=== PATIENT | female | born 1965 | race Asian ===

== ENCOUNTER 2016-12-05 12:59 | Emergency (ER) | payer OTHER ==
[~2016-12-05] VITALS: Ht 162.6 cm; Wt 54.0 kg
[2016-12-05 13:06] VITALS: Ht 162.6 cm; Wt 54.0 kg
[2016-12-05] MEDS ORDERED: LORAZEPAM 1 MG TAB PO ONE (14:30)
--- NOTE | 2016-12-05 15:13 | ERD ---
ER Documentation Chief Complaint Date/Time DATE: 12/05/16 TIME: 15:10 Chief Complaint anxiety since last night, heart racing, lorazepam not working HPI This is a 51-year-old female presents to the ER stating that she started feeling heart palpitations since last night. Patient took lorazepam last night and half a pill this morning however her symptoms continue. Patient states that she feels as if she has chest pressure and pressure in her head. She also admits to numbness and tingling of her hands and feet. Patient denies any recent travel. She denies any leg pain, redness or swelling. Patient denies any shortness of breath. Her chest pressure is nonexertional. Her symptoms have been constant since they started. Patient denies any head trauma. She denies any nausea vomiting or diarrhea. She denies any fevers or chills. Patient does have a past medical history of hyperthyroidism and is currently seeing an automobile painter for a goiter that she has. ROS 12 point review of systems was done, all negative except per HPI. Allergies Allergies: Coded Allergies: No Known Allergy (Unverified , 12/05/16) PMhx/Soc Medical and Surgical Hx: pt denies Surgical Hx Anesthesia Reaction: No Hx Neurological Disorder: No Hx Respiratory Disorders: No Hx Cardiac Disorders: No Hx Psychiatric Problems: Yes Hx Miscellaneous Medical Probl: Yes (HYPERTHYROIDISM, ANXIETY) Hx Alcohol Use: No Hx Substance Use: No Hx Tobacco Use: No Smoking Status: Never smoker Physical Exam Vitals Vital Signs Date Time Temp Pulse Resp B/P Pulse Ox O2 Delivery O2 Flow Rate FiO2 12/05/16 18:06 98.6 85 19 122/67 99 Room Air 12/05/16 13:06 99.3 123 16 114/56 97 Physical Exam GENERAL: The patient is well developed and appropriate for usual state of health , in no apparent distress. HEENT: Atraumatic. Conjunctivae are pink. Pupils equal, round, and reactive to light. Extraocular muscles are grossly intact. Bilateral tympanic membranes are clear with no evidence of erythema, effusion or dulling of the light reflex. The oropharynx is clear with no erythema or exudates. NECK: C-spine is soft and supple. There is no cervical lymphadenopathy. CHEST: Clear to auscultation bilaterally. There are no rales, wheezes or rhonchi. HEART: Regular rate and rhythm. No murmurs, clicks, rubs or gallops. ABDOMEN: Soft, nontender and nondistended. Good bowel sounds. No rebound or guarding. No gross peritonitis. No gross organomegaly or masses. No Bower sign or McBurney point tenderness. No pulsatile masses. BACK: No midline or flank tenderness. EXTREMITIES: Equal pulses bilaterally. There is no peripheral clubbing, cyanosis or edema. No focal swelling or erythema. Full range of motion. Grossly neurovascularly intact. NEURO: Alert and oriented. Cranial nerves II through XII are intact. Motor strength in all 4 extremities with 5/5 strength. Sensation grossly intact. Normal speech and gait. SKIN: There is no apparent rash or petechia. The skin is warm and dry. Result Diagram: 12/05/16 1505 12/05/16 1505 Results 24 hrs Laboratory Tests Test 12/05/16 15:05 White Blood Count 4.210^3/ul Red Blood Count 4.5410^6/ul Hemoglobin 14.1g/dl Hematocrit 41.6% Mean Corpuscular Volume 91.6fl Mean Corpuscular Hemoglobin 31.1pg Mean Corpuscular Hemoglobin Concent 33.9g/dl Red Cell Distribution Width 12.5% Platelet Count 96124^3/UL Mean Platelet Volume 9.4fl Neutrophils % 65.1% Lymphocytes % 22.7% Monocytes % 11.0% Eosinophils % 0.7% Basophils % 0.5% Nucleated Red Blood Cells % 0.0/100WBC Neutrophils # (Manual) 310^3/ul Lymphocytes # 1.010^3/ul Monocytes # 0.510^3/ul Eosinophils # 0.010^3/ul Basophils # 0.010^3/ul Nucleated Red Blood Cells # 0.010^3/ul D-Dimer < 220.00ng/ml D-Dimer Comment Sodium Level 144mmol/L Potassium Level 3.9mmol/L Chloride Level 99mmol/L Carbon Dioxide Level 29mmol/L Anion Gap 20 Blood Urea Nitrogen 11mg/dl Creatinine 0.73mg/dl Glucose Level 101mg/dl Calcium Level 9.8mg/dl Total Bilirubin 0.4mg/dl Direct Bilirubin 0.00mg/dl Indirect Bilirubin 0.4mg/dl Aspartate Amino Transf (AST/SGOT) 23IU/L Alanine Aminotransferase (ALT/SGPT) 30IU/L Alkaline Phosphatase 92IU/L Troponin I < 0.012ng/ml Total Protein 8.8g/dl Albumin 4.3g/dl Globulin 4.50g/dl Albumin/Globulin Ratio 0.95 Thyroid Stimulating Hormone (TSH) 3.840MIU/L Free Thyroxine Index 2.50ug/ml Thyroxine (T4) 7.9ug/dl Triiodothyronine (T3) Uptake 31.7% Current Medications Medications (Trade) Dose Ordered Sig/Guillermo Route PRN Reason Start Time Stop Time Status Last Admin Dose Admin Lorazepam (Ativan) 1 mg ONCE ONCE PO 12/05/16 14:30 12/05/16 14:31 DC 12/05/16 14:43 [place] [id number] Radiology Main Line: [phone] DIAGNOSTIC IMAGING REPORT Patient: HARPREET LARIOS : 1965 Age: 51 Sex: F MR #: [id number] DOS: 12/05/16 1421 Ordering MD: THU JAEGER. PA-C Location: [facility] Room/Bed: PROCEDURE: Chest Radiograph. CLINICAL INDICATION: Chest pain TECHNIQUE: Single frontal chest radiograph. COMPARISON: None available FINDINGS: The cardiomediastinal silhouette is within normal limits. There is symmetric 1.5 cm nodules in the bilateral mid lung zone consistent with nipple shadows. The lungs are otherwise clear. No infiltrate or effusion is seen. The bones are intact. IMPRESSION: 1. No evidence of acute cardiopulmonary disease. RPTAT: KK .Velasquez Stuart MD, MD Date Time Electronically viewed and signed by .Velasquez Stuart MD, on 2016 15:35 .B/ CC: THU JAEGER Procedures/MDM Differential diagnosis includes but is not limited to; STEMI, dissection, pneumothorax, PE, esophageal rupture, tamponade, pneumonia, pericarditis, GERD, musculoskeletal, endocarditis, anxiety. This is likely anxiety. Patient past medical history of anxiety. Suspicion for pulmonary embolism is low, patient's d-dimer was negative. In regards to acute cardiac myocardial infarction, suspicion is low as patient's EKG is normal at [address] elevation no T- wave inversion is easy was read by Dr. Dickey. Patient's heart score is 0. Patient's thyroid panel was completely normal, suspicion for thyroid storm is low. In regards to patient's headache, she is neurologically intact with no focal neurological deficits, I discussed the possibility of CT scan, however patient refused CT scan. Patient already had a CT scan at another hospital and stated that it was all normal. I spoked with patient and told her i could not rule out life threatening intracranial emergencies such as brain bleed without CT scan, and that this could result in permanent disability or , however patient does not want CT scan. Suspicion for acute intracranial pathology is low , patient did not state that this was the worst headache of her life. Patient was comfortably sleeping and did not have any symptoms when I went to go reevaluate her. She is stable for outpatient follow-up. Patient was told to continue with lorazepam that she already has. She is to follow-up with her primary care doctor within 1-2 days return to ER sooner if symptoms worsen. Medical decision making shared with the patient she understands and agrees with plan. Departure Diagnosis: Primary Impression: Palpitations Condition: Stable THU JAEGER Dec 05, 2016 15:09
[2016-12-05 15:23] LABS: BASOPHILS % 0.5 % (0.0-2.0); EOSINOPHILS % 0.7 % (0.0-7.0); HEMATOCRIT 41.6 % (37.0-47.0); HEMOGLOBIN 14.1 g/dl (12.0-16.0); LYMPHOCYTES % 22.7 % (15.0-51.0); MEAN CORPUSCULAR HEMOGLOBIN 31.1 pg (29.0-33.0); MEAN CORPUSCULAR HGB CONC 33.9 g/dl (32.0-37.0); MEAN CORPUSCULAR VOLUME 91.6 fl (82.0-101.0); MEAN PLATELET VOLUME 9.4 fl (7.4-10.4); MONOCYTE # 0.5 10^3/ul (0.3-0.9); NEUTROPHILS % 65.1 % (39.0-77.0); PLATELET COUNT 253 10^3/UL (140-415); RED BLOOD COUNT 4.54 10^6/ul (4.20-5.40); RED CELL DISTRIBUTION WIDTH 12.5 % (11.5-14.5); WHITE BLOOD COUNT 4.2 10^3/ul (4.8-10.8)
--- NOTE | 2016-12-05 15:36 | RADRPT ---
PROCEDURE: Chest Radiograph. CLINICAL INDICATION: Chest pain TECHNIQUE: Single frontal chest radiograph. COMPARISON: None available FINDINGS: The cardiomediastinal silhouette is within normal limits. There is symmetric 1.5 cm nodules in the bilateral mid lung zone consistent with nipple shadows. The lungs are otherwise clear. No infiltrat e or effusion is seen. The bones are intact. IMPRESSION: 1. No evidence of acute cardiopulmonary disease. RPTAT: KK .Velasquez Stuart MD, Date Time Electronically viewed and signed by .Velasquez Stuart MD, on 12/05/2016 15:35 .B/
[2016-12-05 15:39] LABS: ALANINE AMINOTRANSFERASE 30 IU/L (13-69); ALKALINE PHOSPHATASE 92 IU/L (42-121); ASPARTATE AMINO TRANSFERASE 23 IU/L (15-46); CARBON DIOXIDE 29 mmol/L (21-31); CREATININE 0.73 mg/dl (0.44-1.00); GLUCOSE 101 mg/dl (70-220); TOTAL PROTEIN 8.8 g/dl (6.1-8.1)
[2016-12-05 15:51] LABS: ALBUMIN 4.3 g/dl (3.3-4.9); ALBUMIN/GLOBULIN RATIO 0.95; ANION GAP 20 (8-16); BILIRUBIN,INDIRECT 0.4 mg/dl (0-1.1); BILIRUBIN,TOTAL 0.4 mg/dl (0.2-1.3); BLOOD UREA NITROGEN 11 mg/dl (7-20); CALCIUM 9.8 mg/dl (8.4-10.2); CHLORIDE 99 mmol/L (97-110); POTASSIUM 3.9 mmol/L (3.5-5.1); SODIUM 144 mmol/L (135-144)
[2016-12-05 15:55] LABS: D-DIMER < 220.00 ng/ml (<460)
[2016-12-05 15:57] LABS: T3 UPTAKE 31.7 % (23.5-40.5)
[2016-12-05 15:59] LABS: TROPONIN-I < 0.012 ng/ml (0.00-0.12)
[2016-12-05 18:06] VITALS: BP 122/67; PULSE 85; RESP 19; TEMP 98.6
== END 2016-12-05 18:31 | disposition home or self-care (01) ==
LOC: FTE 12:59
DX: R00.2 Palpitations (principal)
CPT/HCPCS: 36415; 71010; 80053; 84436; 84443; 84479; 84484; 85025; 85378; 93005; Z7502; Z7610